=== PATIENT | female | born 1955 | race Two or more races ===

== ENCOUNTER 2019-12-18 13:35 | Outpatient (CLI) | payer MEDICARE, OTHER ==
[~2019-12-18] VITALS: Ht 157.5 cm; Wt 93.9 kg
[2019-12-18] MEDS ORDERED: IV NS 0.9% 250 ML IV ONE (17:45)
[2019-12-18] MEDS ORDERED: IOHEXOL-350 100 ML VIAL IV ONE (17:45)
[2019-12-18] MEDS ORDERED: NITROGLYCERIN 0.4 MG/TAB BOTTLE ONE (17:59)
[2019-12-18] MEDS ORDERED: METOPROLOL TARTRATE 50 MG TABLET PO PRN (18:00)
[2019-12-18] MEDS ORDERED: NITROGLYCERIN 0.4 MG/TAB BOTTLE SL ONE (18:00)
[2019-12-18 18:06] VITALS: BP 160/55
--- NOTE | 2019-12-18 18:25 | NUR ---
Patient transported back to [facility] via [facility]. 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 Patient left in stable condition and denies any discomfort. Patient understands the verbal instructions.
== END 2019-12-18 23:59 | disposition home or self-care (01) ==
LOC: RAD 13:35
PROVIDERS: ATTEND Internal Medicine Cardiovascular Disease
DX: I10 Essential (primary) hypertension (principal); E78.5 Hyperlipidemia, unspecified; E03.9 Hypothyroidism, unspecified; R60.0 Localized edema; I25.10 Atherosclerotic heart disease of native coronary artery without angina pectoris; I25.83 Coronary atherosclerosis due to lipid rich plaque
CPT/HCPCS: 75574; J7050; Q9967